=== PATIENT | female | born 1995 | race Caucasian/White ===

== ENCOUNTER 2019-07-15 15:05 | Emergency (ER) | payer OTHER ==
[~2019-07-15] VITALS: Ht 167.6 cm; Wt 65.4 kg
[2019-07-15 15:09] VITALS: BP 117/70; Ht 167.6 cm; Wt 65.4 kg
== END 2019-07-15 16:00 | disposition home or self-care (01) ==
LOC: ED 15:05
DX: T21.05XA Burn of unspecified degree of buttock, initial encounter (principal); X08.8XXA Exposure to other specified smoke, fire and flames, initial encounter; Y93.89 Activity, other specified; Y92.89 Other specified places as the place of occurrence of the external cause; Y99.8 Other external cause status

== ENCOUNTER 2019-09-16 13:09 | Emergency (ER) | payer OTHER ==
[~2019-09-16] VITALS: Ht 167.6 cm; Wt 64.0 kg
[2019-09-16 14:08] VITALS: Ht 167.6 cm; Wt 64.0 kg
[2019-09-16 16:05] VITALS: BP 114/70
== END 2019-09-16 16:18 | disposition home or self-care (01) ==
LOC: ED 13:09
DX: N91.2 Amenorrhea, unspecified (principal); R42 Dizziness and giddiness; R11.2 Nausea with vomiting, unspecified; F17.210 Nicotine dependence, cigarettes, uncomplicated; Z71.6 Tobacco abuse counseling
CPT/HCPCS: 82962; 99406